=== PATIENT | female | born 1975 | race Hispanic/Latino ===

== ENCOUNTER 2019-03-24 16:54 | Outpatient (CLI) | payer BC | END 2019-03-24 16:55 | disposition home or self-care (01) | LOC: C.RADIC 16:54 | DX: F32.9 Major depressive disorder, single episode, unspecified (principal); E66.01 Morbid (severe) obesity due to excess calories; Z68.41 Body mass index [BMI] 40.0-44.9, adult; M25.50 Pain in unspecified joint ==